=== PATIENT | male | born 1970 | race African-American/Black ===

== ENCOUNTER 2023-08-14 00:23 | Emergency (ER) | payer MEDICAID ==
[~2023-08-14] VITALS: Ht 167.6 cm; Wt 58.5 kg
[2023-08-14] MEDS ORDERED: IV NS 0.9% 1,000 ML BAG IV ONE (01:00)
[2023-08-14 01:15] LABS: BASOPHILS % (AUTO) 0.2 % (0.0-2.0); EOSINOPHILS % (AUTO) 0.4 % (0.0-6.0); HEMATOCRIT 39 % (39-51); HEMOGLOBIN 12.9 g/dL (13.5-17.5); LYMPHOCYTES # (AUTO) 1.2 K/uL (0.8-4.8); LYMPHOCYTES % (AUTO) 16.1 % (20.0-44.0); MEAN CORPUSCULAR HEMOGLOBIN 28 PG (26.0-33.0); MEAN CORPUSCULAR HGB CONC 33 g/dl (31.0-36.0); MEAN CORPUSCULAR VOLUME 84 fL (80-96); MONOCYTES # (AUTO) 0.5 K/uL (0.1-1.30); MONOCYTES % (AUTO) 6.9 % (2.0-12.0); NEUTROPHILS # (AUTO) 5.8 K/uL (1.8-8.9); NEUTROPHILS % (AUTO) 76.4 % (43.0-81.0); PLATELET COUNT (AUTO) 212 K/uL (150-450); RED BLOOD CELL COUNT(AUTO) 4.63 MIL/uL (4.5-6.0); RED CELL DISTRIBUTION WIDTH 15.9 % (11.5-15.0); WHITE BLOOD COUNT (AUTO) 7.6 K/uL (4.3-11.0)
[2023-08-14 01:28] LABS: INR 0.96 (0.91-1.10); PARTIAL THROMBOPLASTIN TIME 27.3 SEC (24.3-34.3); PROTHROMBIN TIME 10.2 SECS (9.2-11.1)
[2023-08-14 01:34] LABS: APPEARANCE,URINE CLOUDY (CLEAR); BILIRUBIN,URINE NEGATIVE (NEGATIVE); BLOOD, URINE 2+ Ery/uL (NEGATIVE); COLOR,URINE YELLOW (YELLOW); KETONES,URINE TRACE mg/dL (NEGATIVE); LEUKOCYTE ESTERASE ,URINE 2+ (NEGATIVE); NITRITE, URINE POSITIVE (NEGATIVE); PH,URINE 7.5 (5.0-8.0); PROTEIN,URINE NEGATIVE (NEGATIVE); UGLUCOSE NEGATIVE (NEGATIVE)
[2023-08-14 01:35] LABS: AMPHETAMINE, URINE NEGATIVE (NEGATIVE); BARBITURATE, URINE NEGATIVE (NEGATIVE); BENZODIAZEPINE, URINE NEGATIVE (NEGATIVE); CANNABINOID, URINE NEGATIVE (NEGATIVE); COCCAINE, URINE NEGATIVE (NEGATIVE); OPIATE, URINE NEGATIVE (NEGATIVE); PHENCYCLIDINE SCREEN,URINE NEGATIVE (NEGATIVE)
[2023-08-14 01:37] LABS: ALANINE AMINOTRANSFERASE 14 U/L (12-78); ALBUMIN 3.5 g/dL (3.4-5.0); ALKALINE PHOSPHATASE 62 U/L (46-116); ASPARTATE AMINOTRANSFERASE 6 U/L (15-37); BILIRUBIN,DIRECT 0.1 mg/dL (0.0-0.2); BILIRUBIN,TOTAL 0.2 mg/dL (0.2-1.0); CALCIUM, SERUM 9.4 mg/dL (8.5-10.1); CARBON DIOXIDE 31 mmol/L (21-32); CHLORIDE 102 mmol/L (98-107); CREATININE 0.7 mg/dL (0.6-1.3); GLUCOSE 112 mg/dL (74-106); POTASSIUM 3.7 mmol/L (3.5-5.1); SODIUM SERUM 142 mmol/L (136-145); TOTAL PROTEIN, SERUM 7.3 g/dL (6.4-8.2); UREA NITROGEN, BLOOD 6 mg/dL (7-18)
[2023-08-14 01:50] LABS: ADD URINE CULTURE YES
[2023-08-14 01:51] LABS: BACTERIA,URINE Moderate /HPF (None Seen); URINE AMORPHOUS URATE Many /HPF (None Seen)
[2023-08-14 01:53] LABS: ALCOHOL, BLOOD < 3 mg/dL (0-10)
[2023-08-14 01:54] LABS: ACETAMINOPHEN <10 ug/ml (10-30); SALICYLATE 1.8 mg/dL (2.8-20.0)
[2023-08-14] MEDS ORDERED: CEFTRIAXONE 1GM BAG (ER ONLY) 1 GM/50 ML PIGGYBACK IV ONE (02:00)
[2023-08-14] MEDS ORDERED: CEFTRIAXONE 1GM BAG (ER ONLY) 50 ML IV ONE (02:21)
[2023-08-14] MEDS ORDERED: BENZ1TAB7 PO (08:19)
[2023-08-14] MEDS ORDERED: DIVA500T2 PO (08:19)
[2023-08-14] MEDS ORDERED: LEVE500T9 PO (08:19)
[2023-08-14] MEDS ORDERED: FAMO20TA8 PO (08:19)
[2023-08-14] MEDS ORDERED: LORA-258 PO (08:19)
[2023-08-14] MEDS ORDERED: POLY17PO4 PO (08:19)
[2023-08-14] MEDS ORDERED: BISA5TAB10 PO (08:19)
[2023-08-14] MEDS ORDERED: OLAN15TA3 PO (08:19)
[2023-08-14] MEDS ORDERED: RISP0.2515 PO (08:19)
[2023-08-14] MEDS ORDERED: ACET-868 PO (08:19)
[2023-08-14] MEDS ORDERED: OLAN10TA3 PO (08:19)
[2023-08-14] MEDS ORDERED: TRAZ-257 PO (08:19)
[2023-08-14 09:55] VITALS: BP 122/68; TEMP 98.7; O2SAT 99
== END 2023-08-14 09:56 | disposition short-term general hospital (02) ==
LOC: ER 00:25
DX: G93.40 Encephalopathy, unspecified (principal); N39.0 Urinary tract infection, site not specified; Z91.018 Allergy to other foods
CPT/HCPCS: 99291; 96365; 96361; 93005; 71045; 70450; 85025; 80048; 87086; 80076; 85378; 81001; 36415; 84484; 85730; 87426; 80143; 80320; 80307; J7030; J0696; C9803; G0480